=== PATIENT | female | born 1950 | race Caucasian/White ===

== ENCOUNTER 2016-06-30 18:10 | Emergency (ER) | payer MEDICARE, OTHER ==
[~2016-06-30] VITALS: Ht 160 cm; Wt 84.5 kg
[~2016-06-30 18:10] MED LIST: AMOXICILLIN 50500 MG PO; ASPIRIN 32325 MG/TAB PO; ASPIRIN 81M81 MG/TA2 PO; BUDEPRION SR150 M1 PO; CELEXA10 MG PO; GLUCOPHAGE XR500 M1 PO; GLUCOPHAGE1000 MG PO; GLUCOPHAGE500 MG/TAB PO; GLUCOTROL 5M5 MG/TAB PO; LOPRESSOR 225 MG/TAB PO; METOPIRONE250 MG PO; NO HOME MEDICATIONS; PERCOCET 325 MG1 TA2 PO; PHENERGAN 25 TA25 MG PO; PHENERGAN25 MG RC; PLAVIX 75MG TAB75 MG PO; PRAVACHOL10 MG PO; TOPROL XL 25MG25 MG PO; WELLBUTRIN SR150 M1 PO; ZOCOR 10MG10 MG PO
[2016-06-30 18:17] VITALS: TEMP 97.6
[2016-06-30 20:41] LABS: BASO # 0.1 (0.0-0.2); BASO % 0.8 % (0.0-2.0); EOS # 0.2 (0.0-0.7); GRAN # 3.6 (1.4-6.5); GRAN % 50.6 % (42.2-75.2); HEMATOCRIT 38.6 % (37.0-47.0); HEMOGLOBIN 12.7 g/dl (12.5-16.0); LYMPH # 2.5 (1.2-3.4); LYMPH % 35.5 % (20.0-51.0); MEAN CELL VOLUME 85 fl (80.0-100.0); MEAN CORPUSCULAR HEMOGLOBIN 28 pg (27.0-31.0); MEAN CORPUSCULAR HGB CONC 33 g/dl (33.0-37.0); MEAN PLATELET VOLUME 10.8 fl (7.4-10.4); MONO # 0.5 (0.1-0.6); MONO % 6.9 % (1.7-9.3); PLATELET COUNT 255 K/mm3 (130-400); RED BLOOD COUNT 4.53 M/mm3 (4.10-5.30); REDCELL DISTRIBUTION WIDTH-CV 13.4 % (11.5-14.5); WHITE BLOOD COUNT 7.1 K/mm3 (4.8-10.8)
[2016-06-30 20:50] LABS: ADJUSTED CALCIUM 9.9 mg/dL (8.4-10.2); ALANINE AMINOTRANSFERASE 35 U/L (9-52); ALKALINE PHOSPHATASE 172 U/L (50-136); ANION GAP 12 mmol/L (7-16); BILIRUBIN,TOTAL 0.9 mg/dL (0.0-1.0); BLOOD UREA NITROGEN 22 mg/dL (7-17); CALCIUM 9.9 mg/dL (8.4-10.2); CARBON DIOXIDE 24 mmol/L (22-30); CHLORIDE 100 mmol/L (98-107); CREATININE, serum 0.87 mg/dL (0.52-1.25); GLUCOSE 372 mg/dL (74-106); POTASSIUM 4.2 mmol/L (3.4-5.0); SODIUM 136 mmol/L (137-145); TOTAL PROTEIN 6.8 gm/dL (6.4-8.2)
[2016-06-30 21:10] LABS: PH 5 (5-8); SQUAMOUS EPITHELIAL 0-2 /hpf; URINE APPEARANCE Cloudy; URINE BACTERIA None Seen /hpf; URINE BILIRUBIN Negative (NEGATIVE); URINE BLOOD 2+ (NEGATIVE); URINE COLOR Yellow; URINE GLUCOSE 3+ (NEGATIVE); URINE KETONE Negative (NEGATIVE); URINE RBC 20-50 /hpf; URINE UROBILINOGEN Negative (NEGATIVE); URINE WBC >50 /hpf
[2016-06-30] MEDS ORDERED: OMNICEF 300MG300 MG PO (21:23)
[2016-06-30 22:33] VITALS: BP 141/74; PULSE 81
== END 2016-06-30 22:33 | disposition home or self-care (01) ==
LOC: COL.ER 18:10
PROVIDERS: Emergency Medicine
DX: E11.65 Type 2 diabetes mellitus with hyperglycemia (principal); N39.0 Urinary tract infection, site not specified; B96.20 Unspecified Escherichia coli [E. coli] as the cause of diseases classified elsewhere; I10 Essential (primary) hypertension; Z79.84 Long term (current) use of oral hypoglycemic drugs
CPT/HCPCS: J0696; J1815; J7030

== ENCOUNTER 2016-10-25 07:53 | Day surgery (SDC) | payer MEDICARE, OTHER ==
[~2016-10-25] VITALS: Ht 160 cm; Wt 84.5 kg
[~2016-10-25 07:53] MED LIST changes: +OMNICEF 300MG300 MG PO
[2016-10-25 08:25] VITALS: BP 141/79; PULSE 84; TEMP 97.6
[2016-10-25 09:30] VITALS: BP 135/66; PULSE 65; TEMP 97.2
[2016-10-25 09:40] VITALS: BP 139/69; PULSE 66
[2016-10-25 09:55] VITALS: BP 134/60; PULSE 62
== END 2016-10-25 09:58 | disposition home or self-care (01) ==
LOC: SDCO 07:53
DX: Z12.11 Encounter for screening for malignant neoplasm of colon (principal)
CPT/HCPCS: OP; J2250; J3010; J7030

== ENCOUNTER 2017-02-21 08:30 | Outpatient (RCR) | payer MEDICARE, OTHER | END 2017-02-21 09:59 | disposition home or self-care (01) | LOC: MKS.ESL.PT 08:30 | DX: Z01.818 Encounter for other preprocedural examination (principal); M23.203 Derangement of unspecified medial meniscus due to old tear or injury, right knee; M17.11 Unilateral primary osteoarthritis, right knee | CPT/HCPCS: G8978-GP; G8979-GP; G8980-GP ==

== ENCOUNTER → 2017-02-25 | Outpatient (CLI) | payer MEDICARE, OTHER | LOC: COL.RAD 13:51 | DX: R09.89 Other specified symptoms and signs involving the circulatory and respiratory systems (principal) | CPT/HCPCS: Q9967 ==

== ENCOUNTER 2017-04-18 14:30 | Outpatient (RCR) | payer MEDICARE, OTHER | END 2017-04-21 10:32 | LOC: MKS.ESL.PT 14:30 | DX: Z47.89 Encounter for other orthopedic aftercare (principal); M17.11 Unilateral primary osteoarthritis, right knee; Z98.890 Other specified postprocedural states | CPT/HCPCS: G0283-GP; G8978-GP; G8979-GP; G8980-GP ==

== ENCOUNTER 2017-10-11 15:55 | Emergency (ER) | payer MEDICARE, OTHER ==
[~2017-10-11] VITALS: Ht 160 cm; Wt 85.5 kg
[2017-10-11 16:10] VITALS: TEMP 98.1
[2017-10-11 16:14] LABS: BASO # 0.1 (0.0-0.2); BASO % 0.7 % (0.0-2.0); EOS # 0.3 (0.0-0.7); EOS % 3.2 % (0-4.0); GRAN % 61.3 % (42.2-75.2); HEMATOCRIT 42.4 % (37.0-47.0); HEMOGLOBIN 13.8 g/dl (12.5-16.0); LYMPH # 2.7 (1.2-3.4); LYMPH % 27.3 % (20.0-51.0); MEAN CELL VOLUME 84 fl (80.0-100.0); MEAN CORPUSCULAR HEMOGLOBIN 27 pg (27.0-31.0); MEAN CORPUSCULAR HGB CONC 33 g/dl (33.0-37.0); MEAN PLATELET VOLUME 10.5 fl (7.4-10.4); MONO # 0.6 (0.1-0.6); MONO % 6.2 % (1.7-9.3); PLATELET COUNT 318 K/mm3 (130-400); RED BLOOD COUNT 5.05 M/mm3 (4.10-5.30); REDCELL DISTRIBUTION WIDTH-CV 14.1 % (11.5-14.5)
[2017-10-11 16:20] LABS: INR 0.9 (0.8-3.0); PROTHROMBIN TIME 10.9 SECONDS (9.7-12.8)
[2017-10-11 16:25] LABS: D-DIMER < 200.00 ng/mLDDu (200-230)
[2017-10-11] MEDS ORDERED: DOXYCYCLINE HY100 MG PO (16:26)
[2017-10-11 16:27] LABS: ALANINE AMINOTRANSFERASE 30 U/L (9-52); ALBUMIN 4.1 gm/dL (3.5-5.0); ALKALINE PHOSPHATASE 118 U/L (50-136); ANION GAP 14 mmol/L (7-16); AST,SGOT 17 U/L (15-37); BILIRUBIN,TOTAL 0.6 mg/dL (0.0-1.0); BLOOD UREA NITROGEN 18 mg/dL (7-17); CALCIUM 9.6 mg/dL (8.4-10.2); CARBON DIOXIDE 20 mmol/L (22-30); CHLORIDE 105 mmol/L (98-107); CREATININE, serum 0.82 mg/dL (0.52-1.25); GLUCOSE 209 mg/dL (74-106); POTASSIUM 4.1 mmol/L (3.4-5.0); SODIUM 139 mmol/L (137-145); TOTAL PROTEIN 7.4 gm/dL (6.4-8.2)
[2017-10-11] MEDS ORDERED: ZOVIRAX400 MG PO (16:27)
[2017-10-11] MEDS ORDERED: CELEXA 20MG20 MG/TAB PO (16:28)
[2017-10-11] MEDS ORDERED: GLUCOTROL10 MG PO (16:28)
[2017-10-11] MEDS ORDERED: APRESOLINE50 MG PO (16:29)
[2017-10-11] MEDS ORDERED: CLARITIN 1010 MG/TAB PO (16:30)
[2017-10-11] MEDS ORDERED: LEVEMIR FLEX100 U/ML SQ (16:30)
[2017-10-11 16:41] LABS: TROPONIN-I < 0.012 ng/mL (0.000-0.034)
[2017-10-11 19:20] VITALS: BP 153/90; PULSE 71
== END 2017-10-11 19:21 | disposition home or self-care (01) ==
LOC: COL.ER 15:55
PROVIDERS: Emergency Medicine
DX: R06.02 Shortness of breath (principal); E11.9 Type 2 diabetes mellitus without complications; I10 Essential (primary) hypertension; Z87.442 Personal history of urinary calculi; Z87.891 Personal history of nicotine dependence; Z90.710 Acquired absence of both cervix and uterus; Z98.890 Other specified postprocedural states; Z79.82 Long term (current) use of aspirin; Z79.4 Long term (current) use of insulin

== ENCOUNTER → 2018-03-11 | Outpatient (CLI) | payer MEDICARE, OTHER ==
[~2018-03-11] MED LIST changes: +APRESOLINE50 MG PO; +CELEXA 20MG20 MG/TAB PO; +CLARITIN 1010 MG/TAB PO; +DOXYCYCLINE HY100 MG PO; +GLUCOTROL10 MG PO; +LEVEMIR FLEX100 U/ML SQ; +ZOVIRAX400 MG PO
== END ==
LOC: MC.RAD 10:38
DX: Z12.31 Encounter for screening mammogram for malignant neoplasm of breast (principal)

== ENCOUNTER 2018-05-29 14:45 | Outpatient (RCR) | payer MEDICARE, OTHER | END 2018-06-02 | disposition home or self-care (01) | LOC: MKS.ESL.PT | DX: Z47.89 Encounter for other orthopedic aftercare (principal) | CPT/HCPCS: G8978-GP; G8979-GP ==

== ENCOUNTER 2019-03-26 20:34 | Observation (INO) | payer MEDICARE, OTHER ==
[~2019-03-26] VITALS: Ht 160 cm; Wt 86.4 kg
[2019-03-26] VITALS (66 sets, daily range): BP systolic 170; BP diastolic 76; PULSE 54; TEMP 97.9; O2SAT 91–100
[2019-03-26 21:06] LABS: BASO # 0.1 (0.0-0.2); BASO % 0.7 % (0.0-2.0); EOS # 0.2 (0.0-0.7); EOS % 2.1 % (0-4.0); GRAN # 4.6 (1.4-6.5); GRAN % 60.9 % (42.2-75.2); HEMATOCRIT 37.1 % (37.0-47.0); HEMOGLOBIN 11.9 g/dl (12.5-16.0); LYMPH # 2.2 (1.2-3.4); LYMPH % 28.5 % (20.0-51.0); MEAN CELL VOLUME 86 fl (80.0-100.0); MEAN CORPUSCULAR HEMOGLOBIN 28 pg (27.0-31.0); MEAN CORPUSCULAR HGB CONC 32 g/dl (33.0-37.0); MEAN PLATELET VOLUME 10.6 fl (7.4-10.4); MONO # 0.5 (0.1-0.6); MONO % 6.5 % (1.7-9.3); PLATELET COUNT 262 K/mm3 (130-400); RED BLOOD COUNT 4.32 M/mm3 (4.10-5.30); REDCELL DISTRIBUTION WIDTH-CV 14.1 % (11.5-14.5)
[2019-03-26 21:19] LABS: INR 0.9 (0.8-3.0)
[2019-03-26 21:29] LABS: ALANINE AMINOTRANSFERASE 17 U/L (9-52); ALBUMIN 3.9 gm/dL (3.5-5.0); ALKALINE PHOSPHATASE 91 U/L (50-136); ANION GAP 10 mmol/L (7-16); AST,SGOT 22 U/L (15-37); BILIRUBIN,TOTAL 0.4 mg/dL (0.0-1.0); BLOOD UREA NITROGEN 20 mg/dL (7-17); CALCIUM 9.1 mg/dL (8.4-10.2); CARBON DIOXIDE 25 mmol/L (22-30); CHLORIDE 105 mmol/L (98-107); CREATININE, serum 0.87 (0.52-1.25); GLUCOSE 238 mg/dL (74-106); LIPASE 215 U/L (23-300); POTASSIUM 3.9 mmol/L (3.4-5.0); SODIUM 140 mmol/L (137-145); TOTAL PROTEIN 6.3 gm/dL (6.4-8.2)
[2019-03-26 21:45] LABS: TROPONIN-I < 0.012 ng/mL (0.000-0.035)
--- NOTE | 2019-03-26 22:30 | NUR ---
PT ARRIVED IN UNIT, ABLE TO TRANSFER SELF TO BED INDEPENDENTLTY. PT ALERT AND ORIENTED X 4, ON ROOM AIR, DENIES ANY PAIN AT THIS TIME. PT ORIENTED TO ROOM AND USE OF CALL LIGHT. PT'S BP ELEVATED AT 160-170'S, DR. PANTOJA NOTIFIED AND ORDERED HYDRALAZINE PRN AND WAS GIVEN TO PT WITH GOOD RESULTS. BP TRENDING DOWN AFTER.
[2019-03-27] VITALS (368 sets, daily range): BP systolic 138–170; BP diastolic 59–72; PULSE 59–65; TEMP 97.6–98; O2SAT 90–100
[2019-03-27 05:47] LABS: HEMOGLOBIN 11.4 g/dl (12.5-16.0); MEAN CELL VOLUME 86 fl (80.0-100.0); MEAN CORPUSCULAR HEMOGLOBIN 27 pg (27.0-31.0); MEAN CORPUSCULAR HGB CONC 32 g/dl (33.0-37.0); MEAN PLATELET VOLUME 10.5 fl (7.4-10.4); PLATELET COUNT 240 K/mm3 (130-400); REDCELL DISTRIBUTION WIDTH-CV 14.2 % (11.5-14.5)
[2019-03-27 05:50] LABS: HEMATOCRIT 36.2 % (37.0-47.0)
[2019-03-27 05:53] LABS: ANION GAP 6 mmol/L (7-16); BLOOD UREA NITROGEN 15 mg/dL (7-17); CALCIUM 8.5 mg/dL (8.4-10.2); CARBON DIOXIDE 25 mmol/L (22-30); CHLORIDE 109 mmol/L (98-107); CREATININE, serum 0.67 (0.52-1.25); GLUCOSE 120 mg/dL (74-106); SODIUM 140 mmol/L (137-145)
[2019-03-27 06:09] LABS: TROPONIN-I < 0.012 ng/mL (0.000-0.035)
[2019-03-27 06:13] LABS: EOSINOPHIL 2 % (0-4); HYPOCHROMIA 2+; LYMPHOCYTE 26 % (20.0-51.0); MYELOCYTE 1 % (0-0); NEUTROPHILS 66 % (42.0-75.2); PLATELET ESTIMATE NORMAL (NORMAL)
[2019-03-27] MEDS ORDERED: NITROSTAT0.4 MG/TAB SL (11:23)
--- NOTE | 2019-03-27 12:13 | NUR ---
Chaplain johnson and offered support with patient.
--- NOTE | 2019-03-27 14:28 | NUR ---
Plan: To return home with her signifigant other"Jose Elias" who is also her emergency contact. Patient reports that she is the in the process of moving to a smaller apartment, and that she has been taking care of a grandson. Patient declined a DPOA at this time. Assess: SW met with patient, and she reports that she uses a push walker, and a wheel chair, but she does not get out of the house too often. Patient reports that her PCP is Dr. Villeda, and she does not have any upcoming appointments with her. Patient noted that she gets her medications through shipment, with no complications or concerns. Patient denied having any care concerns, as she noted that her daughter will help with that. No name was provided, however patient did ask about if she could get assistance in the home with cooking. Action: Started researching possible places for cooking and possible homecare support. Patient was educated on other community resources and supports.
== END 2019-03-27 12:05 | disposition home or self-care (01) ==
LOC: COL.ER 20:34 → ICU 22:24
PROVIDERS: Emergency Medicine; ADMIT Student in an Organized Health Care Education/Training Program
DX: R07.9 Chest pain, unspecified (principal); I25.10 Atherosclerotic heart disease of native coronary artery without angina pectoris; Z95.1 Presence of aortocoronary bypass graft; I10 Essential (primary) hypertension; E78.5 Hyperlipidemia, unspecified; E11.9 Type 2 diabetes mellitus without complications; Z79.4 Long term (current) use of insulin; F41.9 Anxiety disorder, unspecified; Z87.891 Personal history of nicotine dependence; Z79.899 Other long term (current) drug therapy; Z79.82 Long term (current) use of aspirin; Z88.8 Allergy status to other drugs, medicaments and biological substances; Z90.710 Acquired absence of both cervix and uterus; Z86.718 Personal history of other venous thrombosis and embolism; I34.0 Nonrheumatic mitral (valve) insufficiency
CPT/HCPCS: G0378; J0360; J1650; J7030

== ENCOUNTER 2019-06-30 10:48 | Emergency (ER) | payer MEDICARE, OTHER ==
[~2019-06-30] VITALS: Ht 160 cm; Wt 83.2 kg
[~2019-06-30 10:48] MED LIST changes: +NITROSTAT0.4 MG/TAB SL
[2019-06-30 10:53] VITALS: TEMP 97.7
[2019-06-30 11:07] LABS: BASO # 0.1 (0.0-0.2); BASO % 0.8 % (0.0-2.0); EOS # 0.2 (0.0-0.7); EOS % 3.6 % (0-4.0); GRAN # 4.1 (1.4-6.5); GRAN % 62.1 % (42.2-75.2); HEMATOCRIT 39.4 % (37.0-47.0); HEMOGLOBIN 12.2 g/dl (12.5-16.0); LYMPH # 1.7 (1.2-3.4); LYMPH % 25.2 % (20.0-51.0); MEAN CELL VOLUME 86 fl (80.0-100.0); MEAN CORPUSCULAR HEMOGLOBIN 27 pg (27.0-31.0); MEAN CORPUSCULAR HGB CONC 31 g/dl (33.0-37.0); MEAN PLATELET VOLUME 10.5 fl (7.4-10.4); MONO # 0.4 (0.1-0.6); MONO % 6.5 % (1.7-9.3); PLATELET COUNT 263 K/mm3 (130-400); RED BLOOD COUNT 4.61 M/mm3 (4.10-5.30)
[2019-06-30 11:10] LABS: INR 0.9 (0.8-3.0); PROTHROMBIN TIME 10.2 SECONDS (9.7-12.8)
[2019-06-30 11:16] LABS: ALANINE AMINOTRANSFERASE 20 U/L (9-52); ALBUMIN 3.9 gm/dL (3.5-5.0); ALKALINE PHOSPHATASE 84 U/L (50-136); ANION GAP 8 mmol/L (7-16); AST,SGOT 17 U/L (15-37); BILIRUBIN,TOTAL 0.5 mg/dL (0.0-1.0); BLOOD UREA NITROGEN 19 mg/dL (7-17); CALCIUM 8.8 mg/dL (8.4-10.2); CARBON DIOXIDE 24 mmol/L (22-30); CHLORIDE 108 mmol/L (98-107); CREATININE, serum 0.68 (0.52-1.25); GLUCOSE 222 mg/dL (74-106); LIPASE 214 U/L (23-300); SODIUM 140 mmol/L (137-145); TOTAL PROTEIN 6.5 gm/dL (6.4-8.2)
[2019-06-30 11:31] LABS: TROPONIN-I < 0.012 ng/mL (0.000-0.035)
[2019-06-30 16:15] VITALS: BP 152/62; PULSE 53
== END 2019-06-30 16:17 | disposition home or self-care (01) ==
LOC: COL.ER 10:48
PROVIDERS: Emergency Medicine
DX: R07.89 Other chest pain (principal); E11.9 Type 2 diabetes mellitus without complications; I10 Essential (primary) hypertension; I25.10 Atherosclerotic heart disease of native coronary artery without angina pectoris; Z90.710 Acquired absence of both cervix and uterus; Z87.891 Personal history of nicotine dependence; Z95.1 Presence of aortocoronary bypass graft; Z79.82 Long term (current) use of aspirin; Z79.84 Long term (current) use of oral hypoglycemic drugs
CPT/HCPCS: J1885; J2270; J2405; J7030; Q9967

== ENCOUNTER 2019-08-10 10:30 | Outpatient (RCR) | payer MEDICARE | END 2019-10-21 | disposition home or self-care (01) | LOC: MKS.ESL.PT | DX: M50.30 Other cervical disc degeneration, unspecified cervical region (principal) ==

== ENCOUNTER → 2020-01-28 | Outpatient (CLI) | payer OTHER | LOC: COL.RAD 08:39 | DX: M71.22 Synovial cyst of popliteal space [Baker], left knee (principal) ==

== ENCOUNTER 2020-02-02 15:45 | Outpatient (RCR) | payer MEDICARE, OTHER | END 2020-04-27 | disposition home or self-care (01) | LOC: MKS.ESL.OT | DX: G56.22 Lesion of ulnar nerve, left upper limb (principal) ==

== ENCOUNTER 2020-06-02 11:30 | Emergency (ER) | payer MEDICARE, OTHER ==
[~2020-06-02] VITALS: Ht 160 cm; Wt 82.3 kg
[2020-06-02 11:35] VITALS: TEMP 97.6
[2020-06-02] MEDS ORDERED: NORCO 325 MG-51 TAB PO (13:01)
[2020-06-02 13:23] VITALS: BP 121/72; PULSE 70
== END 2020-06-02 13:25 | disposition home or self-care (01) ==
LOC: COL.ER 11:30
DX: M67.432 Ganglion, left wrist (principal); Z90.710 Acquired absence of both cervix and uterus; Z87.891 Personal history of nicotine dependence; Z95.1 Presence of aortocoronary bypass graft; Z88.8 Allergy status to other drugs, medicaments and biological substances; Z79.82 Long term (current) use of aspirin; Z79.84 Long term (current) use of oral hypoglycemic drugs

== ENCOUNTER → 2020-09-18 | Outpatient (CLI) | payer OTHER ==
[~2020-09-18] MED LIST changes: +ASPIRIN E.C. 8181 MG PO; +FLURBIPROFEN OP; +MAXITROL OPHTH3.5 GM OP; +NORCO 325 MG-51 TAB PO
== END ==
LOC: COL.LAB 10:04
DX: Z20.822 Contact with and (suspected) exposure to COVID-19 (principal)

== ENCOUNTER 2020-09-26 12:16 | Day surgery (SDC) | payer OTHER, MEDICARE ==
[~2020-09-26] VITALS: Ht 160.1 cm; Wt 86.0 kg
[2020-09-26] VITALS (11 sets, daily range): BP systolic 135–180; BP diastolic 58–90; PULSE 52–66; TEMP 98
[~2020-09-26 12:16] MED LIST changes: -ASPIRIN E.C. 8181 MG PO; -FLURBIPROFEN OP; -MAXITROL OPHTH3.5 GM OP
[2020-09-26 12:57] LABS: HEMATOCRIT 38.2 % (37.0-47.0); HEMOGLOBIN 12.1 g/dl (12.5-16.0); MEAN CELL VOLUME 86 fl (80.0-100.0); MEAN CORPUSCULAR HEMOGLOBIN 27 pg (27.0-31.0); MEAN CORPUSCULAR HGB CONC 32 g/dl (33.0-37.0); MEAN PLATELET VOLUME 10.6 fl (7.4-10.4); PLATELET COUNT 301 K/mm3 (130-400); RED BLOOD COUNT 4.47 M/mm3 (4.10-5.30); REDCELL DISTRIBUTION WIDTH-CV 13.7 % (11.5-14.5)
[2020-09-26 13:04] LABS: PROTHROMBIN TIME 10.6 SECONDS (9.7-12.8)
[2020-09-26 13:06] LABS: CALCIUM 9.4 mg/dL (8.4-10.2); CREATININE, serum 0.79 (0.52-1.25); POTASSIUM 4.4 mmol/L (3.4-5.0)
[2020-09-26] MEDS ORDERED: CLARITIN 1010 MG/TAB PO (13:11)
[2020-09-26] MEDS ORDERED: ASPIRIN E.C. 8181 MG PO (13:11)
[2020-09-26] MEDS ORDERED: MAXITROL OPHTH3.5 GM OP (13:12)
[2020-09-26] MEDS ORDERED: FLURBIPROFEN OP (13:13)
--- NOTE | 2020-09-26 13:26 | NUR ---
Pt prepped and ready for heart cath scheduled at 1400. contacted at this time as to whether pt can be taken to lab specialist to begin set up. states he will contact lab specialist when ready for pt to be taken to procedure room.
--- NOTE | 2020-09-26 15:15 | NUR ---
PT TO EU 15 VIA BED FROM ASSISTANT PROFESSOR OF ANTHROPOLOGY, ALERT, NO C/O. CALL LIGHT IN REACH, REVIEWED BEDREST WITH PTAMINATA IN ROOM
--- NOTE | 2020-09-26 16:00 | NUR ---
PT TAKES FÉLIX TRAYLOR TV NO C/O
--- NOTE | 2020-09-26 17:00 | NUR ---
pt con't to rest, eyes closed, no change in assessment
--- NOTE | 2020-09-26 19:00 | NUR ---
reviewed discharge inst. with pt on activity, care of site and precautions. no new medication changes, pt is not to take metformin for 48 hours due to contrast. office will call her for followup appt. walked to b/r, gait steady, voided, site to right groin remains the same, iv d'cd intact. pt is up in room dressed, waits for ride
--- NOTE | 2020-09-26 19:10 | NUR ---
pt discharged via w/c to car
== END 2020-09-26 19:11 | disposition home or self-care (01) ==
LOC: COL.CAR 12:16
PROVIDERS: Internal Medicine Interventional Cardiology
DX: I25.10 Atherosclerotic heart disease of native coronary artery without angina pectoris (principal); I10 Essential (primary) hypertension; R00.2 Palpitations; E11.9 Type 2 diabetes mellitus without complications; Z79.4 Long term (current) use of insulin; Z79.82 Long term (current) use of aspirin; Z95.1 Presence of aortocoronary bypass graft; Z79.899 Other long term (current) drug therapy
CPT/HCPCS: C1760; C1769; C1894; J1644; J2250; J3010

== ENCOUNTER 2020-12-28 08:30 | Outpatient (RCR) | payer MEDICARE ==
[~2020-12-28 08:30] MED LIST changes: +ASPIRIN E.C. 8181 MG PO; +FLURBIPROFEN OP; +MAXITROL OPHTH3.5 GM OP
[2021-01-04] MEDS ORDERED: NORCO 325 MG-51 TAB PO (11:50)
== END 2021-03-18 | disposition home or self-care (01) ==
LOC: MKS.ESL.PT
DX: M70.62 Trochanteric bursitis, left hip (principal)

== ENCOUNTER 2021-01-04 08:14 | Emergency (ER) | payer MEDICARE ==
[~2021-01-04] VITALS: Ht 160 cm; Wt 84.5 kg
[2021-01-04 08:25] VITALS: TEMP 97
[2021-01-04 10:55] LABS: COLLECTION METHOD CLEAN CATCH
[2021-01-04 11:06] LABS: MUCOUS Present /lpf; PH 5 (5-8); SQUAMOUS EPITHELIAL 0-2 /hpf; URINE APPEARANCE Hazy; URINE BACTERIA Rare /hpf; URINE BILIRUBIN Negative (NEGATIVE); URINE BLOOD Negative (NEGATIVE); URINE COLOR Yellow; URINE GLUCOSE Negative (NEGATIVE); URINE KETONE Negative (NEGATIVE); URINE LEUKOCYTE ESTERASE Negative (NEGATIVE); URINE NITRATE Negative (NEGATIVE); URINE PROTEIN(semi-quant) Negative (NEGATIVE); URINE RBC 0-2 /hpf; URINE UROBILINOGEN Negative (NEGATIVE)
[2021-01-04] MEDS ORDERED: NORCO 325 MG-51 TAB PO (11:50)
[2021-01-04 12:40] VITALS: BP 139/79; PULSE 71
== END 2021-01-04 12:41 | disposition home or self-care (01) ==
LOC: COL.ER 08:14
PROVIDERS: Family Medicine
DX: S20.20XA Contusion of thorax, unspecified, initial encounter (principal); E11.9 Type 2 diabetes mellitus without complications; I25.10 Atherosclerotic heart disease of native coronary artery without angina pectoris; Z87.891 Personal history of nicotine dependence; Z79.4 Long term (current) use of insulin; Z79.82 Long term (current) use of aspirin; W01.198A Fall on same level from slipping, tripping and stumbling with subsequent striking against other object, initial encounter
CPT/HCPCS: J1885

== ENCOUNTER 2021-05-21 23:16 | Emergency (ER) | payer MEDICARE ==
[~2021-05-21] VITALS: Ht 160 cm; Wt 82.7 kg
[2021-05-22 00:10] VITALS: BP 148/88; PULSE 86; TEMP 98
== END 2021-05-22 00:10 | disposition home or self-care (01) ==
LOC: COL.ER 23:16
DX: S86.001A Unspecified injury of right Achilles tendon, initial encounter (principal); I10 Essential (primary) hypertension; E11.9 Type 2 diabetes mellitus without complications; F41.9 Anxiety disorder, unspecified; Z79.4 Long term (current) use of insulin; Z79.84 Long term (current) use of oral hypoglycemic drugs; Z79.899 Other long term (current) drug therapy; W18.30XA Fall on same level, unspecified, initial encounter

== ENCOUNTER 2021-06-27 09:45 | Outpatient (RCR) | payer MEDICARE | END 2021-06-29 | disposition home or self-care (01) | LOC: MKS.ESL.PT | DX: M25.571 Pain in right ankle and joints of right foot (principal) ==

== ENCOUNTER 2021-08-22 13:00 | Outpatient (RCR) | payer MEDICARE | END 2021-08-27 | disposition home or self-care (01) | LOC: MKS.ESL.PT | DX: M25.571 Pain in right ankle and joints of right foot (principal) ==

== ENCOUNTER 2021-09-24 12:45 | Outpatient (RCR) | payer MEDICARE | END 2021-09-25 | disposition home or self-care (01) | LOC: MKS.ESL.PT | DX: M25.571 Pain in right ankle and joints of right foot (principal) ==

== ENCOUNTER 2021-09-24 22:58 | Emergency (ER) | payer MEDICARE ==
[~2021-09-24] VITALS: Ht 160 cm; Wt 90.9 kg
[2021-09-24 22:59] VITALS: BP 100/89; PULSE 135
== END 2021-09-25 05:20 | disposition expired ==
LOC: COL.ER 22:58
DX: I46.9 Cardiac arrest, cause unspecified (principal)
CPT/HCPCS: J0171; J1250; J7060